=== PATIENT | female | born 1950 | race Caucasian/White ===

== ENCOUNTER 2025-05-29 15:22 | Outpatient (AMB) | payer MEDICARE, MEDICAID, SELFPAY ==
[2025-05-29 15:29] VITALS: BMI 21.9
--- NOTE | 2025-05-29 15:29 | A.PHYSOV ---
Vital Signs 05/29/25 15:29 Height 5 ft 2 in Weight 120 lb BMI 21.9 Intake Visit Reasons: EVAL FOR BACK INJECTION Intake Note: Patient is a 75 year old female here for re-evaluation of lower back pain. Consulting It Architect Required: No Allergies codeine (CODEINE) Allergy (Unknown, Verified 05/29/25 15:31) NAUSEA & VOMITING tramadol (TRAMADOL) Allergy (Unknown, Verified 05/29/25 15:31) SLEPT FOR 36 HOURS NARCOTICS Allergy (Unknown, Uncoded 04/04/20 16:01) MAKES PT DROWSY HPI Comments Details: Ms Schultz is a 75-year-old female seen in evaluation today for vertebral genic low back pain. Patient underwent L4-5, L5-S1 facet injection on 03/16/2025 patient reports 50% reduction of her pain for 2 months and then her pain returned despite performing physician directed home exercise plan. Patient is requesting repeat lumbar facet injections. She is also experiencing right shoulder pain. She has undergone subacromial injection of the shoulder in the past. Patient reports increasing pain with abduction. She is requesting right subacromial injection. Procedure: L5-S1 ANTTY 10/05/2024 no relief Bilateral L4-5, L5-S1 facet injection 50% reduction of her pain Right subacromial injection 05/29/2025 [facility] Surgical History H/O shoulder surgery (Unknown) H/O: knee surgery (Unknown) Stented coronary artery (Unknown) History of cholecystectomy (Unknown) Status post cardiac surgery (Unknown) Social History Alcohol intake: current Alcohol intake frequency: holidays/special occasions only Patient Tobacco Use Status: Never used Tobacco Use of substances other than those prescribed or required for medical reasons: No Review of Systems Narrative Vertebral dramatic low back pain, right shoulder pain, no incontinence, saddle anesthesia or urinary retention. Physical Exam Exam Exam: Right shoulder exam: She is tender to the lateral deltoid. Full range of motion in all planes. 5/ 5 rotator cuff strength throughout. Positive Neer test. Negative empty can test. Full range of motion of her elbow wrist and hand. Equal referral coordinator strength bilaterally. Lumbar Spine: Examination of her lumbar spine, no visible swelling or deformity. She has time to lower lumbar facets. She is otherwise nontender. All range of motion of lumbar spine with pain particularly with facet loading. Special Tests: Lhermittes sign was negative Heel Toe walk is normal Left straight leg raise: Negative Right straight leg raise: Negative Special tests Miguel test is negative Ganslen's test is negative SI Joint compression test negative Sharon test negative Piriformis stretch is negative Lower Extremities: Full range of motion bilateral lower extremities. The Neuro: Sensation: Intact to lower extremities bilaterally Strength L2 (Psoas): 5/5 on the left and 5/5 on the right. L3 (Quads): 5/5 on the left and 5/5 on the right. L4 (Ant tibialis): 5/5 on the left and 5/5 on the right. L5 (EHL) 5/5 on the left and 5/5 on the right. S1 (Gastroc): 5/5 on the left and 5/5 on the right. DTR L4: (Patellar) Left 1 Right 1 S1: (Achilles) Left 1 Right 1 Babinski Downgoing No pathologic clonus. No involuntary movement. Vital Signs: BMI result Body Mass Index 21.9 Office Procedures AMB Shoulder Injection AMB Shoulder Injection Procedure Details: Right Subacromial injection Procedure: The patient was educated about risks, complications and benefits including but not limited to increased serum glucose, infection, nerve damage, bleeding, tendon/ligament damage and pain. We agree with a subacromial injection is the next best step in the treatment plan. Verbal consent was obtained. Using aseptic technique, the skin was cleansed with Betadine. Ethyl chloride was used to desensitize the skin. Using a posterior approach, 40 mg of Kenalog and 3 mL 2% lidocaine were injected using a 25-gauge inch and a half needle into the subacromial space. The patient tolerated the procedure well without immediate complication. Postinjection instructions were given. Shoulder Injection - : Right All charges added?: Procedure code (CPT) selection complete Office Meds Kenalog 40 mg/mL suspension for injection Performing Provider: MARKUS Hull Performing Location: [facility] Administered by: MARKUS Hull on 05/29/25 16:12 Dose Route Admin Location Dispensed Lot Number Expiration Date [facility] [place] [employer] 40 mg intra-articular 1 mL [id number] [employer] Total Dispensed Waste 1 mL 0 % lidocaine (PF) 20 mg/mL (2 %) injection solution Performing Provider: MARKUS Hull Performing Location: [facility] Administered by: MARKUS Hull on 05/29/25 16:12 Dose Route Admin Location Dispensed Lot Number Expiration Date [employer] 60 mg intra-articular 3 mL [id number] Total Dispensed Waste 3 mL 0 % Assessment & Plan Assessment & Plan (1) Impingement of ankle joint: Code(s): M25.879 - Other specified joint disorders, unspecified ankle and foot Category: Medical (2) Vertebrogenic low back pain: Code(s): M54.51 - Vertebrogenic low back pain Category: Medical Plan Ms. Schultz is a 75-year-old female seen in evaluation today for vertebral genic low back pain. She responded very well bilateral L4-5, L5-S1 facet injection with greater than 50% reduction of her pain for 2-1/2 months. Patient's pain had returned despite performing her physician directed home exercise plan and using her medications as prescribed. At this point I recommend repeating the facet injection. We will obtain prior authorization for her injection contact her once we have done so. Patient is experiencing symptoms of impingement syndrome. She responded very well to subacromial injection in the past. Today she consented to repeat injection. She was given post-injection instructions, recommend: Likely compresses for 15 minutes up to 5 times daily. Continue rotator cuff strengthening. She should avoid repetitive overhead activities. Thank you for allowing me to participate in the care of your patient. Orders: Orders AMB Shoulder Injection Today M25.879 - Other specified joint disorders, unspecified ankle and foot Coding Level of Care Code Tele Est Pt Level 3 (40560) Diagnoses Impingement of ankle joint M25.879 Vertebrogenic low back pain M54.51 CPT Codes AMB Shoulder Injection - Hip/Bursa Injection - : Right ([id number])
--- OUTSIDE RECORDS SUMMARY | 2025-05-29 17:00 | XMS_ITS | Encounter Summary ---
Author Organization [facility] Address [address] [place] [id number] Phone Care Team Providers Care Passenger Service Supervisor Name Role Phone Monika Abraham MD Primary Care Provider [phone] Encounter Details Date Type Department Care Team (Late st Contact Info) Description 03/08/2022 Procedure Pass [facility], Ct Scan - [address] [address] Social History Tobacco Use Types Packs/Day Years Used Date Smoking Tobacco: Never Smokeless Tobacco: Never Alcohol Use Standard Drinks/Week Comments Never 0 (1 standard drink = 0.6 oz pur e alcohol) Comments No Sex and Gender Information Value Date Recorded Sex Assigned at Not on file Legal Sex Female 7:02 PM EST Gender Identity Not on file Sexual Orientation Not on file documented as of this encounter Functional Status * Calculated C-SSRS Risk Score (Lifetime/Recent) Answer Date of Assessment Author No Risk Indicated 03/08/2022 8:47 PM Oniel Wyman, GALINA * [place] Suicide Severity Rating Scale (Screener/Recent Self-Report) Question Answer Date of Assessment Author 1. Wish to be (Past 1 Month) No 022 8:47 PM Oniel Wyman, RN 2. Non-Specific Active Suici josé luis Thoughts (Past 1 Month) No 03/08/2022 8:47 PM DELFINOT Marv De La Paz, RN 6. Suicidal Behavior (Lifetime) No 8:47 PM Oniel Wyman, RN documented as of this encounter Plan of Treatment Not on file documented as of this encounter Visit Diagnoses Not on filedocumented in this encounter Additional Health Concerns Infection Onset Date Last Indicated Resolved Time COVID-19 05/15/2022 05/15/2022 06/05/2022 1:21 AM EST documented as of this encounter Care Teams Passenger Service Supervisor Relationship Specialty Start Date End Date Monika Abraham MD [address] [facility] [address] [place] [address] PCP - General 10/21/18 documented as of this encounter Additional Source Comments The information contained in this document represents components of the legal health record. It is not the complete legal health record.[facility]
--- OUTSIDE RECORDS SUMMARY | 2025-05-29 17:00 | XMS_ITS | Encounter Summary ---
Author Organization [facility] Address [address] [place] [phone] Phone Care Team Providers Care Outsole Cutter Machine Name Role Phone Monika Abraham MD Primary Care Provider [phone] Encounter Details Date Type Department Care Team (Late st Contact Info) Description 05/15/2022 Procedure Pass [facility], Ct Scan - [address] [address] Social History Tobacco Use Types Packs/Day Years [...] Score (Lifetime/Recent) Answer Date of Assessment Author Moderate Risk 05/15/2022 2:11 PM DELFINOT Cherie Austin RN * [place] Suicide Severity Rating Scale (Screener/Recent Self-Report) Question Answer Date of Assessment Author 1. Wish to be (Past 1 Month) Yes 022 2:11 PM DELFINOT Jeri Austin RN 2. Non-Specific Active Suici josé luis Thoughts (Past 1 Month) Yes 05/15/2022 2:11 PM DELFINOT Raya Austin RN 3. Active Suicidal Ideation with any Methods (Not Plan) Without Intent to Act (Past 1 Month) No 05/15/2022 2:11 PM EDT Jeri Austin R N 4. Active Suicidal Ideation with Some Intent to Act, Without Specific Plan (Past 1 Month) No 05/15/2022 2:11 PM EDT Jeri Austin R N 5. Active Suicidal Ideation with Specific Plan and Intent (Past 1 Month) No 05/15/2022 2:11 PM EDT Jeri Austin R N 6. Suicidal Behavior (Lifetime) Yes 2:11 PM EDT Jeri Austin, RN documented as of this encounter Plan of Treatment Not on file documented as of this encounter Visit Diagnoses Not on filedocumented in this encounter Additional Health Concerns Infection Onset Date Last Indicated Resolved Time COVID-19 05/15/2022 05/15/2022 06/05/2022 1:21 AM EST documented as of this encounter Care Teams Outsole Cutter Machine Relationship Specialty Start Date End Date Monika Abraham MD [address] [place] [phone] PCP - General 10/21/18 documented as of this encounter Additional Source Comments The information contained in this document represents components of the legal health record. It is not the complete legal health record.[facility]
--- OUTSIDE RECORDS SUMMARY | 2025-05-29 17:00 | XMS_ITS | Clinical Summary ---
Author Organization [facility] Address [address] [place] [id number] Phone Care Team Providers Care Cook Fast Food Name Role Phone Monika Abraham MD Primary Care Provider [phone] Allergies Active Allergy Reactions Criticality Noted Date Comments Latex Hives 09/19/2018 Other 10/20/2018 Most types of Antibiotics Sulfa (Sulfonamide Antibiotics) Hives 09/19/2018 Medications ibuprofen (ADVIL,MOTRIN) 200 MG tablet Take 200 mg by mouth every 6 (six) hours as needed for pain (specific location in comments). Active LORazepam (ATIVAN) 0.5 MG tablet Take 0.5 mg by mouth every 6 (six) hours as needed for anxiety. Active atorvastatin (LIPITOR) 80 MG tablet Take 80 mg by mouth daily. 2 Active ezetimibe (ZETIA) 10 mg tablet Take 10 mg by mouth daily. 2 Active ferrous sulfate 325 mg (65 mg eklutna iron) EC tablet Take 325 mg by mouth daily. 2 Active metoprolol succinate (TOPROL-XL) 25 MG 24 hr tablet Take 12.5 mg by mouth daily. 2 Active pantoprazole (PROTONIX) 40 MG tablet Take 40 mg by mouth 2 (two) times a day. 2 Active citalopram (CELEXA) 20 MG tablet Take 20 mg by mouth daily. 2 Active QUEtiapine (SEROQUEL) 100 MG tablet Take 100 mg by mouth nightly at bedtime. Active traZODone (DESYREL) 50 MG tablet Take 50 mg by mouth nightly at bedtime as needed. Active lamoTRIgine (LAMICTAL) 200 MG IMMEDIATE release tabletIndicatio ns:bipolar disorder in remission Take 400 mg by mouth nightly at bedtime. Last filled 02/03, unsure if still taking per pharmacist. Indications: bipolar disorder in remission Active Family History Medical History Relation Comments Heart attack Father No Known Problems Mother Relation Status Comments Father Mother Social History Tobacco Use Types Packs/Day Years Used Date Smoking Tobacco: Never Smokeless Tobacco: Never Alcohol Use Standard Drinks/Week Comments Never 0 (1 standard drink = 0.6 oz pur e alcohol) Education Answer Date Recorded Are you interested in more education? Not on pramod e 11/14/2022 Are you concerned about learning? Not on file 11/14/2022 No 11/14/2022 No 11/14/2022 Digital Access Answer Date Recorded No 12/14/2022 No 12/14/2022 Reliable internet access at home? Not on file 12/14/2022 Device with a working camera? Not on file Comments No Sex and Gender Information Value Date Recorded Sex Assigned at Not on file Legal Sex Female 7:02 PM EST Gender Identity Not on file Sexual Orientation Not on file Last Filed Vital Signs Vital Sign Reading Time Taken Comments Blood Pressure 133/62 05/17/2022 2:23 PM EDT Pulse 78 05/16/2022 7:52 PM EDT Temperature 36.8 C (98.2 F) 05/17/2022 2:23 PM EDT Respiratory Rate 18 05/17/2022 2:23 PM EDT Oxygen Saturation 100% 05/17/2022 2:23 PM EDT Inhaled Oxygen Concentration - - Weight 63.5 kg (140 lb) 03/08/2022 8:44 PM EDT Height 160 cm (5' 3 ) 03/08/2022 8:44 PM EDT Body Mass Index 24.8 03/08/2022 8:44 PM EDT Plan of Treatment Health Maintenance Due Date Last Done Comments Adult Td,Tdap Booster 1950 LIPID PANEL 1950 DEPRESSION SCREENING 1961 HEPATITIS C SCREENING 1967 ZOSTER VACCINES (1 of 2) 1999 OSTEOPOROSIS SCREENING INITI AL (ONE-TIME) 2014 PNEUMOCOCCAL VACCINES (50+ years) (2 of 2 - PCV) 02/12/2015 02/12/2014 PAP SMEAR 08/13/2022 08/13/2017 RSV VACCINE (1 - 1-dose 75+ series) 01/29/2024 INFLUENZA VACCINE (#1) 2025 0, 08/01/2019 COVID-19 VACCINE (4 - 2024-2 6 season) 2025 06/11/2021, 10/23/2020, 09/29/2020 SMOKING STATUS SCREENING (On ce After 26 Yrs) Completed 10/20/2018 HEPATITIS A VACCINES Aged Out No long er eligible based on patient's age to complete this topic HIB VACCINES Aged Out No longer eligi ble based on patient's age to complete this topic IPV VACCINES Aged Out No longer eligi ble based on patient's age to complete this topic MENINGOCOCCAL VACCINES (ACWY) Aged Out No longer eligible based on patient's age to complete this topic MENINGOCOCCAL VACCINES (B) Aged Out N o longer eligible based on patient's age to complete this topic Medical Devices Not on file Procedures Procedure Name Priority Date/Time Associated Diagnosis Comments PAP SMEAR FOR RESULT ENTRY ONLY Routine 08/13/2017 from Last 3 Months or Most Recently Relevant to Health Maintenance Results * PAP SMEAR FOR RESULT ENTRY ONLY (08/13/2017) Pap smear NIL HPV Negative (-16/18) Historical Provider HEALTH MAINTENANCE Final Result from Last 3 Months or Most Recently Relevant to Health Maintenance Insurance MEDICARE PART A & B MEDICARE PART A & B [facility] MEDICARE PART A & B MEDICARE PART A & B [facility] MEDICARE PART A & [facility] B MED[facility]ARE PART A & B [facility] MEDICARE PART A & B [facility] MEDICARE PART A & B [facility] Advance Directives For more information, please contact: [phone] (9AM - 5PM [facility], Wednesday-Wednesday) Documents on File Type Date Recorded Patient Informatics Coordinator Expl anation Healthcare Proxy 12/17/2023 4:57 PM Care Teams Cook Fast Food Relationship Specialty Start Date End Date Monika Abraham MD [address] [phone] PCP - General 10/21/18 Additional Source Comments The information contained in this document represents components of the legal health record. It is not the complete legal health record.[facility]
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
--- OUTSIDE RECORDS SUMMARY | 2025-05-29 17:01 | XMS_ITS | Encounter Summary ---
Author Organization [facility] Address [address] [place] [address] Care Team Providers Care Hospice Office Coordinator Name Role Phone Monika Abraham MD Primary Care Provider [phone] Reason for Visit * Reason Onset Date Comments appointment scheduling 05/25/2025 Encounter Details Date Type Department Care Team (Late st Contact Info) Description 05/25/2025 Telephone [facility] - [facility] [address] [facility] [address] [place] [address] Orlin Olvera MD [address] [place] [address] [place] [address] Social History Tobacco Use Types Packs/Day Years Used Date Smoking Tobacco: Never Smokeless Tobacco: Never Alcohol Use Standard Drinks/Week Comments No 0 (1 standard drink = 0.6 oz pur e alcohol) Comments Unknown Sex and Gender Information Value Date Recorded Sex Assigned at Female 11/22/2024 2:44 PM EDT Legal Sex Female 11:38 AM EST Gender Identity Female 11/22/2024 2:44 PM EDT Sexual Orientation Straight 01/17/2025 9: 51 AM EDT documented as of this encounter Progress Notes * Juliana Bourgeois - 05/28/2025 2:52 PM EST Patients daughter Lori called back. Appointment scheduled with Dr Olvera on 2024 at 11:20 AM. Appointment reminder mailed. * Jennifer Woods - 05/25/2025 10:56 AM EST Left message for patient to schedule followup from recall for Dr. Olvera or [place]. documented in this encounter Plan of Treatment Upcoming Encounters Date Type Department Care Team (Late st Contact Info) Description 06/15/2025 2:00 PM EST Office Visit Internal Medicine - [place] [address] [place] [address] Monika Abraham MD [address] [place] [phone] 07/05/2025 11:20 AM EST Office Visit [facility] - [facility] [address] [facility] [address] [place] [phone] Orlin Olvera MD [address] [place] [address] [address] [place] [address] documented as of this encounter Visit Diagnoses Not on filedocumented in this encounter Additional Health Concerns Assessment Noted Time PHQ-9 Depression Total Score: 14 024 7:50 PM EST A fall risk assessment has been complete d for the patient 05/26/2024 7:47 PM EST documented as of this encounter Care Teams Hospice Office Coordinator Relationship Specialty Start Date End Date Monika Abraham MD [address] [place] [address] PCP - General Internal Medicine 07/19/12 documented as of this encounter
--- OUTSIDE RECORDS SUMMARY | 2025-05-29 17:01 | XMS_ITS | Clinical Summary ---
Author Organization [facility] Address [address] [place] [address] Phone Care Team Providers Care Sustainable Design Coordinator Name Role Phone Monika Abraham MD Primary Care Provider [phone] Allergies Active Allergy Reactions Criticality Noted Date Comments Bacitracin 06/04/2021 Codeine 10/09/2008 Lactose 09/24/2017 Lactulose 12/03/2021 pt has hx of poor rectal tone and hx of ciff has caused severe diarrhea in past. Latex 09/24/2017 Morphine 01/11/2012 Neomycin 06/04/2021 Neomycin-Polymyxin B Gu 04/03/2013 Penicillins 12/03/2021 Polymyxin B 06/04/2021 Sulfa (Sulfonamide Antibiotics) 09/24/2017 Tramadol 12/03/2021 Other reaction(s): Lethargy pt slept 26hr after taking tramadol in the past, too sedated Medications acetaminophen (TYLENOL) 325 mg tablet Take 2 Tablets by mouth every 6 hours as needed for Pain (mild to moderate pain) for up to 10 days. 08/19/19 24 Active aspirin 81 mg chewable tablet aspirin 81 mg chewable tablet CHEW AND SWALLOW 1 TABLET BY MOUTH DAILY 04/03/20 21 Active CALCIUM CARBONATE ORAL Take 1 Tablet by mouth 2 times daily. 08/26/19 23 Active citalopram (CeleXA) 20 mg tablet citalopram 20 mg tablet TAKE 1 TABLET BY MOUTH EVERY DAY 10/19/20 22 Active diclofenac (VOLTAREN) 1 % topical gel Apply 1 g topically daily. 10/08/19 Active gabapentin (NEURONTIN) 100 mg capsule TAKE 1 CAPSULE BY MOUTH UP TO THREE TIMES DAILY NEEDED FOR PAIN 12/14/19 Active ibuprofen (ADVIL,MOTRIN) 800 mg tablet Take 1 Tablet by mouth every 8 hours for 20 days. 10/08/19 Active lamoTRIgine (LaMICtal) 200 mg tablet lamotrigine 200 mg tablet TAKE 2 TABLETS BY MOUTH EVERY DAY Active meloxicam (MOBIC) 15 mg tablet Take 1 Tablet by mouth daily for 60 days. 09/23/19 Active traZODone (DESYREL) 50 mg tablet Take 10 tablets (500 mg total) by mouth at bedtime. Active quetiapine fumarate (QUETIAPINE ORAL) Take by mouth. Activ e clopidogreL (PLAVIX) 75 mg tablet Take 1 tablet (75 mg total) by mouth 1 (one) time each day. Active cyclobenzaprin e (FLEXERIL) 5 mg tablet TAKE 1 TABLET BY MOUTH AT BEDTIME FOR UP TO 10 DAYS NEEDED FOR MUSCLE SPASMS Active ezetimibe (ZETIA) 10 mg tablet 05/06/20 Active ferrous sulfate 325 mg (65 mg iron) EC tablet 05/11/20 Active loratadine (CLARITIN) 10 mg tablet TK 1 T PO D Active LORazepam (ATIVAN) 1 mg tablet Take 1 tablet (1 mg total) by mouth 2 (two) times a day if needed. for anxiety 09/16/19 Active pantoprazole (PROTONIX) 40 mg EC tablet 05/11/20 Active prazosin (MINIPRESS) 5 mg capsule Active polyethylene glycol (Golytely) 236-22.74-6.74 -5.86 gram solution Take 4L by mouth once for one dose. May substitue any PEG. Starting at 6PM the night before your procedure drink 1 8oz glasses at your own pace until you complete half of the gallon. Finish 2nd half of the gallon 5 hours before your procedure. 4000 mL 11/16/19 Active bisacodyL (DULCOLAX) 5 mg EC tablet Take 2 tablets by mouth right before beginning bowel prep. See instructions provided by the office 2 tablet 11/16/19 25 Active hydrocortisone 2.5 % cream Apply topically 2 (two) times a day if needed for irritation or rash. 30 g 5 11/18/19 25 026 Active atorvastatin (LIPITOR) 80 mg tablet TAKE 1 TABLET(80 MG) BY MOUTH 1 TIME EACH DAY 90 tablet 1 02/13/20 25 Active calcium carbonate-stacey min D3 600 mg-10 mcg (400 unit) capsule Take 1 capsule by mouth 2 (two) times a day. 180 each 2 03/16/20 25 Active metoprolol succinate (TOPROL-XL) 25 mg 24 hr tablet TAKE 1/2 TABLET BY MOUTH DAILY 45 tablet 05/18/20 25 Active metoprolol tartrate (LOPRESSOR) 25 mg tablet 0.5 tablets (12.5 mg total). 08/20/19 24 025 Discontinued metoprolol succinate (TOPROL-XL) 25 mg 24 hr tablet TAKE 1/2 TABLET BY MOUTH DAILY 45 tablet 02/13/20 25 025 Discontinued Active Problems Problem Noted Date Diagnosed Date CAD (coronary artery disease) of artery bypass g raft 08/16/2023 Overview (04/26/2024): Last Assessment & Plan: No angina symptoms. Lipid profile is excellent. Will discontinue zetia. No recurrent GI bleed and will resume low-dose aspirin. The sternal wire is sticking out and I called surgeon's office. She will be contacted by cardiac surgeons office for an urgent appointment. 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 V24) 10/01/2020 Overview (04/26/2024): Multiple negative prior stress test cardiac catheterization which demonstrated severe three-vessel disease. Eventually, she had a CABG x 3 in January 2019 with NASH to LAD, SVG to OM and SVG to PDA. echocardiogram in July 2020 revealing LVEF 55 to 60%, mild LVH, no wall motion abnormalities, with no hemodynamically significant valve disease, and normal PASP Last Assessment & Plan: She had no angina symptoms. Lipid is not at target was added Zetia. She has been on Plavix CABG 2 years ago with a short interruption. We can switch Plavix to aspirin. I suggest her to take PPI for GI protection. Also suggest to avoid Ibuprofen. Hyperlipidemia 12/16/2017 Overview (04/26/2024): Last Assessment & Plan: Well-controlled. Thyroid nodule 12/16/2017 Essential hypertension 08/19/2017 Overview (04/26/2024): Last Assessment & Plan: Blood pressure well controlled today. Continue current treatment plan Anemia 06/03/2017 Known medical problems 12/09/2016 Opioid dependence ([facility] V24, [facility] V28) Spinal stenosis 12/09/2016 Herpes simplex type 1 infection 09/15/2016 Chronic lower back pain 09/04/2016 Major depression 09/04/2016 Allergic rhinitis 06/13/2014 Vitamin D deficiency 05/14/2014 Osteopenia 11/18/2013 Obstructive sleep apnea 10/07/2013 Dissociative identity disorder ([facility] V24, [facility] V28) 10/03/2013 Fibromyalgia 06/02/2013 Encounters Date Type Department Care Team Description 05/25/2025 Telephone [facility] [address] [facility] [address] [place] [address] Orlin Olvera MD 04/09/2025 Telephone [facility] [address] [facility] [address] [place] [address] Orlin Olvera MD 04/05/2025 8:32 AM EDT - 04/05/2025 11:59 PM EDT Hospital Encounter [facility] [address] [place] [address] Spondylosis without myelopathy or radiculopathy, lumbar region Discharge Disposition: Home or Self Care 03/16/2025 8:34 AM EDT - 03/16/2025 11:59 PM EDT [facility] [address] [place] [phone] Encounter for observation for other suspected diseases and conditions ruled out; Encounter for screening mammogram for malignant neoplasm of breast Discharge Disposition: Home or Self Care 03/16/2025 7:58 AM EDT - 03/16/2025 11:59 PM EDT Hospital Encounter [facility] Density [address] [place] [address] Osteopenia, unspecified location; Localized osteoporosis ([place]) Discharge Disposition: Home or Self Care from Last 3 Months Immunizations Immunization Administration Dates Next Due Influenza Quadravalent, MDCK , 0.5ml, preservative free (Flucelvax) 6mo and older 08/01/2019 Pneumococcal conjugate 13 va lent (Prevnar 13, PCV13) 2mo and older 06/03/2017 Pneumococcal polysaccharide 23 valent (Pneumovax 23) 2yo and older 05/01/2015 Td Tetanus diptheria (Tdvax) 7yo and older 02/15 Zoster Live 01/18/2012 Surgical History Surgery Date Site/Laterality Comments KNEE SURGERY PROCEDURE: HISTORICAL KNEE SURGERY; COMMENT: arthroplasty CHOLECYSTECTOMY PROCEDURE: HISTORICAL CHOLECYSTECTOMY LUMBAR LAMINECTOMY PROCEDURE: HISTORICAL LUMB LAMINECTOMY SHOULDER SURGERY PROCEDURE: HISTORICAL SHOULDER SURGERY Medical History Medical History Date Comments Hypertension DX:Hypertension Heart disease DX:Heart disease Anxiety DX:Anxiety Stroke ([facility] V24, [facility] V28) DX:Stroke ([facility]) History of anorexia nervosa 08/01/2018 DX:H istory of anorexia nervosa; COMMENT: Hospitalized ICU 2006, septic shock, resp failure, prolonged hospital stay. Hx of chronic laxative use and over exercise. Major depression 09/04/2016 DX:Major depres dawn Allergic rhinitis 06/13/2014 DX:Allergic rh initis Anemia 06/03/2017 DX:Anemia Chronic lower back pain 09/04/2016 DX:Chron ic lower back pain Dissociative identity disord er ([facility] V24, [facility] V28) 10/03/2013 DX:Dissociative identity di sorder ([facility]) Hyperlipidemia 12/16/2017 DX:Hyperlipidemi a Fibromyalgia 06/02/2013 DX:Fibromyalgia Herpes simplex type 1 infection 09/15/2016 DX:Herpes simplex type 1 infection Hypertension 08/19/2017 DX:Hypertension Osteopenia 11/18/2013 DX:Osteopenia Opioid dependence ([facility] V 24, [facility] V28) 12/09/2016 DX:Opioid dependence ([facility]) Obstructive sleep apnea 10/07/2013 DX:Obstr uctive sleep apnea Vitamin D deficiency 05/14/2014 DX:Vitamin D deficiency Spinal stenosis 12/09/2016 DX:Spinal stenos is Thyroid nodule 12/16/2017 DX:Thyroid nodul e Herniated disc 12/09/2016 DX:Herniated dis c Neck pain 12/16/2017 DX:Neck pain History of fall 08/21/2014 DX:History of fa ll History of acute renal failure 08/01/2018 D X:History of acute renal failure; COMMENT: During 2006 hospitalization. Family History Medical History Relation Name Comments Heart disease Father Arthritis Mother Heart disease Mother Hypertension Mother Stroke Mother Relation Name Status Comments Father Mother Social History Tobacco [...] Orientation Straight 01/17/2025 9: 51 AM EDT Obstetrics History Last Filed Vital Signs Vital Sign Reading Time Taken Comments Blood Pressure 120/68 02/20/2025 2:26 PM EDT Pulse 67 02/20/2025 2:26 PM EDT Temperature 36.8 C (98.3 F) 02/20/2025 2:26 PM EDT Respiratory Rate - - Oxygen Saturation 98% 02/20/2025 2:26 PM EDT Inhaled Oxygen Concentration - - Weight 52.6 kg (116 lb) 02/20/2025 2:26 PM EDT Height 157.5 cm (5' 2 ) 02/20/2025 2:26 PM EDT Body Mass Index 21.22 02/20/2025 2:26 PM EDT Plan of Treatment Upcoming Encounters Date Type Department Care Team (Late st Contact Info) Description 06/15/2025 2:00 PM EST Office Visit Internal Medicine - [place] [address] [facility] [address] [place] [phone] Monika Abraham MD [address] [place] [address] 07/05/2025 11:20 AM EST Office Visit [facility] [address] [facility] [address] [place] [address] Orlin Olvera MD [address] [place] [address] [place] [address] Health Maintenance Due Date Last Done Comments Hepatitis A Vaccines (1 of 2 - Risk 2-dose series) 01[birth year]29/1969 Zoster Vaccines (2 of 3) 03/14/2012 01/18/2012 Hepatitis C Screening 06/27/2022 Social Influencers of Health Screening 06/27/2022 RSV Immunization Adult Patients (1 - 1-dose 75+ series) 01/29/2024 Depression Screening 07/19/2024 05/26/2024 COVID-19 Vaccine ( season) 2025 07/21/2022, 06/11/2021, 10/23/2020, Additional history exists Influenza Vaccine (#1) 2025 04/26/2020, 2019 Falls Risk Assessment 05/24/2025 05/24/2024, 024 Medicare Annual Wellness Visit 05/24/2025 05/24/2024 Hypertension/CHF/CAD Annual BMP Blood Test 11/17/2025 11/17/2024, 06/26/2022 Cholesterol Screening (Lipid Panel) 11/17/2029 11/17/2024, 11/26/2022 DTaP,Tdap,and Td Vaccines (3 - Td or Tdap) 11/01/2032 11/01/2022, 02/15/2011 Osteoporosis Screening (Bone Density Screening) 03/16/2035 03/16/2025, 08/25/2022 Pneumococcal Vaccine: 50+ Years Completed 06/03/2017, 05/01/2015, 02/12/2014 Breast Cancer Screening Discontinued 03/16/2025 HIB Vaccines Aged Out No longer eligi ble based on patient's age to complete this topic HPV Vaccines Aged Out No longer eligi ble based on patient's age to complete this topic Hepatitis B Vaccines Aged Out No long er eligible based on patient's age to complete this topic IPV Vaccines Aged Out No longer eligi ble based on patient's age to complete this topic MMR Vaccines Aged Out No longer eligi ble based on patient's age to complete this topic Meningococcal ACWY Vaccine Aged Out N o longer eligible based on patient's age to complete this topic Meningococcal B Vaccine Aged Out No l onger eligible based on patient's age to complete this topic RSV Immunization Patients Under 20 months Aged Out No longer eligible based on patient's age to complete this topic Varicella Vaccines Aged Out No longer eligible based on patient's age to complete this topic Procedures Procedure Name Priority Date/Time Associated Diagnosis Comments XR PELVIS 1-2 VIEWS Routine 04/05/2025 8 :38 AM EDT Spondylosis without myelopathy or radiculopathy, lumbar region MG MAMMO DIGITAL SCREENING W KARL BILAT Routine 03/16/2025 9:24 AM EDT Encounter for observation for other suspected diseases and conditions ruled out Encounter for screening mammogram for malignant neoplasm of breast BD BONE DENSITY DXA AXIAL SKELETON Routine 03/16/2025 9:12 AM EDT Osteopenia, unspecified location Localized osteoporosis ([place]) COMPREHENSIVE METABOLIC PANEL Routine 11/17/2024 11:51 AM EDT Mixed hyperlipidemia Thyroid nodule Coronary artery disease involving coronary bypass graft of [place] heart without angina pectoris Essential hypertension General medical exam LIPID PANEL WITH REFLEX TO DIRECT LDL Routine 11/17/2024 11:51 AM EDT Mixed hyperlipidemia Thyroid nodule Coronary artery disease involving coronary bypass graft of [place] heart without angina pectoris Essential hypertension General medical exam from Last 3 Months or Most Recently Relevant to Health Maintenance Results * XR Pelvis 1-2 Views (04/05/2025 8:38 AM EDT) Anatomical Region Laterality Modality Body, Pelvis Radiographic Sumaya ging 04/05/2025 8:43 AM EDT Impressions 04/05/2025 8:50 AM EDT Multifocal degenerative changes. -------- FINAL REPORT -------- Dictated By: Bibiana Ramos Dictated Date: 04/05/2025 08:43 ET Assigned Physician: Bibiana Ramos Reviewed and Electronically Signed By: Bibiana Ramos Signed Date: 04/05/2025 08:50 ET Workstation ID: [id number] Transcribed By: Self Edit Transcribed Date: 04/05/2025 08:43 ET Narrative 04/05/2025 8:50 AM EDT EXAM: Pelvic x-ray. HISTORY: Pain. Spondylosis lumbar region. COMPARISON: None VIEWS: AP view of the pelvis performed. FINDINGS: No evidence of an acute fracture or dislocation. Pelvic ring is intact. No destructive bone lesion. Mild degenerative changes involving the right hip with joint space narrowing and acetabular spurring. Degenerative changes across the symphysis pubis. Degenerative changes also present in the imaged lumbar spine. Faint soft tissue calcifications superior to the left greater trochanter as seen with calcific trochanteric bursitis/tendinopathy. Procedure Note Bibiana Raoms MD - 04/05/2025 EXAM: Pelvic x-ray. HISTORY: Pain. Spondylosis lumbar region. COMPARISON: None VIEWS: AP view of the pelvis performed. FINDINGS: No evidence of an acute fracture or dislocation. Pelvic ring is intact.No destructive bone lesion. Mild degenerative changes involving the righthip with joint space narrowing and acetabular spurring. Degenerativechanges across the symphysis pubis. Degenerative changes also present inthe imaged lumbar spine. Faint soft tissue calcifications superior to theleft greater trochanter as seen with calcific trochantericbursitis/tendinopathy. IMPRESSION: Multifocal degenerative changes. -------- FINAL REPORT -------- Dictated By: Bibiana Ramos Dictated Date: 04/05/2025 08:43 ET Assigned Physician: Bibiana Ramos Reviewed and Electronically Signed By: Bibiana Ramos Signed Date: 04/05/2025 08:50 ET Workstation ID: [id number] Transcribed By: Self Edit Transcribed Date: 04/05/2025 08:43 ET us Dragan APARICIO IMG XR PROCEDURES Final Result * MG Mammo Digital Screening w Karl bilat (03/16/2025 9:24 AM EDT) Anatomical Region Laterality Modality Breast Bilateral Mammography 03/16/2025 9:07 AM EDT Impressions 03/16/2025 9:11 AM EDT No mammographic evidence of malignancy. A negative mammogram in the presence of a clinically suspicious palpable abnormality does not preclude the possibility of malignancy or alter the indications for biopsy. PQRI CPT II 3342F Code 20103, 06379 PQRI 225 CPT II 7025F TISSUE DENSITY: The breasts are almost entirely fatty. (BI-RADS Category A) IMPRESSION: Benign. BI-RADS CATEGORY: 2 - BENIGN RECOMMENDATION: Screening bilateral mammogram is recommended in 1 year. Mammo Location: [facility], [address] [place] [id number] -------- FINAL REPORT -------- Dictated By: Melquiades Mckenna Dictated Date: 03/16/2025 09:07 ET Assigned Physician: Melquiades Mckenna Reviewed and Electronically Signed By: Melquiades Mckenna Signed Date: 03/16/2025 09:11 ET Workstation ID: [id number] Transcribed By: Self Edit Transcribed Date: 03/16/2025 09:07 ET Narrative 03/16/2025 9:11 AM EDT CLINICAL: The patient is a 75 years Female presenting for routine screening mammography. 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 Excisional biopsy was recommended that time but it is uncertain whether or not this was performed. COMPARISON: Most recently 08/18/2012 and most remotely 06/05/2009. TECHNIQUE: Full-field digital mammography of the breasts bilaterally consisting of tomosynthesis in MLO and CC projection is performed in the [employer]omptonographe 2000-D unit. Computer aided detection utilizing the iCAD system was utilized. FINDINGS: The breasts are seen to be largely fatty replaced. Bilateral benign punctate, rim, and vascular calcifications are noted. There is no suspicious cluster of microcalcifications, mass, or area of architectural distortion. There is no skin thickening or nipple retraction. Procedure Note Melquiades Mckenna MD - 03/16/2025 CLINICAL: The patient is a 75 years Female presenting for routinescreening mammography. The patient underwent ultrasound-guided biopsy ofthe right breast on 08/31/2022, yielding atypical ductal hyperplasia andintraductal papilloma. Excisional biopsy was recommended that time but itis uncertain whether or not this was performed. COMPARISON: Most recently 08/18/2012 and most remotely 06/05/2009. TECHNIQUE: Full-field digital mammography of the breasts bilaterallyconsisting of tomosynthesis in MLO and CC projection is performed in theShomptonographe 2000-D unit. Computer aided detection utilizing the Admaticystem was utilized. FINDINGS: The breasts are seen to be largely fatty replaced. Bilateralbenign punctate, rim, and vascular calcifications are noted. There is nosuspicious cluster of microcalcifications, mass, or area of architecturaldistortion. There is no skin thickening or nipple retraction. IMPRESSION: No mammographic evidence of malignancy. A negative mammogram in the presence of a clinically suspicious palpableabnormality does not preclude the possibility of malignancy or alter theindications for biopsy. PQRI CPT II 3342F Code 75587, 57227 PQRI 225 CPT II 7025F TISSUE DENSITY: The breasts are almost entirely fatty. (BI-RADS CategoryA) IMPRESSION: Benign. BI-RADS CATEGORY: 2 - BENIGN RECOMMENDATION: Screening bilateral mammogram is recommended in 1 year. Mammo Location: [facility], [address] [place] [address] -------- FINAL REPORT -------- Dictated By: Melquiades Mckenna Dictated Date: 03/16/2025 09:07 ET Assigned Physician: Melquiades Mckenna Reviewed and Electronically Signed By: Melquiades Mckenna Signed Date: 03/16/2025 09:11 ET Workstation ID: [id number] Transcribed By: Self Edit Transcribed Date: 03/16/2025 09:07 ET Monika Abraham MD IMG BI PROCEDURES Final Result * BD Bone Density DXA Axial Skeleton (03/16/2025 9:12 AM EDT) Anatomical Region Laterality Modality Wrist, Hip, L-spine Bone Densito metry 03/16/2025 9:16 AM EDT Impressions 03/16/2025 9:17 AM EDT 1. Osteopenia. 2. FRAX analysis yields a 10-year probability of major osteoporotic fracture of 12.9% and a 10-year probability of hip fracture of 3.6%. Code 30304 -------- FINAL REPORT -------- Dictated By: Melquiades Mckenna Dictated Date: 03/16/2025 09:16 ET Assigned Physician: Melquiades Mckenna Reviewed and Electronically Signed By: Melquiades Mckenna Signed Date: 03/16/2025 09:17 ET Workstation ID: [id number] Transcribed By: Self Edit Transcribed Date: 03/16/2025 09:16 ET Narrative 03/16/2025 9:17 AM EDT HISTORY: The patient is a 75-year-old postmenopausal female with clinical concern for metabolic bone disease. FINDINGS: Dual energy x-ray absorptiometry of the lumbar spine and femurs is performed. The mean bone mineral density at L1-L4 (with the exclusion of L3) is 1.241 gm/cm2 which is 106% of that of young normals and 136% of that of age matched controls. This yields a T-score of 0.6 and a Z-score of 2.8 and there is therefore no evidence of osteoporosis or osteopenia here. The mean bone mineral density of the femurs bilaterally is 0.807 gm/cm2 which is 80% of that of young normals and 108% of that of age matched controls. This yields a T-score of -1.6 and a Z-score of 0.5 which is diagnostic of osteopenia. The T-score of the right femoral neck is -2.0 and that of the left femoral neck is -1.5 which is diagnostic of osteopenia. Procedure Note Melquiades Mckenna MD - 03/16/2025 HISTORY: The patient is a 75-year-old postmenopausal female with clinicalconcern for metabolic bone disease. FINDINGS: Dual energy x-ray absorptiometry of the lumbar spine and femursis performed. The mean bone mineral density at L1-L4 (with the exclusionof L3) is 1.241 gm/cm2 which is 106% of that of young normals and 136% ofthat of age matched controls. This yields a T-score of 0.6 and a Z-scoreof 2.8 and there is therefore no evidence of osteoporosis or osteopeniahere. The mean bone mineral density of the femurs bilaterally is 0.807 gm/qj7eswan is 80% of that of young normals and 108% of that of age matchedcontrols. This yields a T-score of -1.6 and a Z-score of 0.5 which isdiagnostic of osteopenia. The T- score of the right femoral neck is -2.0and that of the left femoral neck is -1.5 which is diagnostic ofosteopenia. IMPRESSION: 1. Osteopenia. 2. FRAX analysis yields a 10-year probability of major osteoporoticfracture of 12.9% and a 10-year probability of hip fracture of 3.6%. Code 45594 -------- FINAL REPORT -------- Dictated By: Melquiades Mckenna Dictated Date: 03/16/2025 09:16 ET Assigned Physician: Melquiades Mckenna Reviewed and Electronically Signed By: Melquiades Mckenna Signed Date: 03/16/2025 09:17 ET Workstation ID: [id number] Transcribed By: Self Edit Transcribed Date: 03/16/2025 09:16 ET Monika Abraham MD IM DXA PROCEDURES Final Resul t * Lipid panel with reflex to direct LDL (11/17/2024 11:51 AM EDT) Cholesterol 156 0 - 200 mg/dL LAB CHEMISTRY METHOD 11/17/2024 4:16 PM EDT [facility] Triglycerides 90 0 - 150 mg/dL LAB CHEMISTRY METHOD 11/17/2024 4:16 PM EDT [facility] HDL 65 >=40 mg/dL LAB CHEMISTRY METHOD 11/17/2024 4:16 PM [facility] LDL Calculated 73 0 - 100 mg/dL LAB CHEMISTRY METHOD 11/17/2024 4:16 PM EDT [facility] VLDL Cholesterol Kirt 18 mg/dL LAB CHEMISTRY METHOD 11/17/2024 4:16 PM EDT [facility] Non HDL Chol. (LDL+VLDL) 91 <145 mg/dL LAB CHEMISTRY METHOD 11/17/2024 4:16 PM EDT [facility] Chol/HDL Ratio 2.4 0.0 - 4.4 LAB CHEMISTRY METHOD 11/17/2024 4:16 PM [facility] Blood Venous blood specimen / Unknown Venipuncture / Unknown 11/17/2024 11:51 AM EDT 11/17/2024 1:23 PM EDT us Monika Abraham MD LAB BLOOD ORDERABLES Final Res ult [facility] [address] [place] [address], [place] [phone] * (ABNORMAL) Comprehensive metabolic panel (11/17/2024 11:51 AM EDT) Sodium 143 133 - 145 mmol/L LAB CHEMISTRY METHOD 11/17/2024 4:16 PM [facility] Potassium 4.5 3.5 - 5.5 mmol/L LAB CHEMISTRY METHOD 11/17/2024 4:16 PM [facility] Chloride 112(H) 96 - 110 mmol/L LAB CHEMISTRY METHOD 11/17/2024 4:16 PM [facility] CO2 26 21 - 32 mmol/L LAB CHEMISTRY METHOD 11/17/2024 4:16 PM [facility] Anion Gap 5 3 - 11 LAB CHEMISTRY METHOD 11/17/2024 4:16 PM [facility] Glucose 87 70 - 100 mg/dL LAB CHEMISTRY METHOD 11/17/2024 4:16 PM [facility] BUN 15 5 - 25 mg/dL LAB CHEMISTRY METHOD 11/17/2024 4:16 PM [facility] Creatinine 0.73 0.50 - 1.10 mg/dL LAB CHEMISTRY METHOD 11/17/2024 4:16 PM [facility] eGFR 86 >=60 mL/min/1. 73m2 LAB CHEMISTRY METHOD 11/17/2024 4:16 PM [facility] Comment:Calculation based on the Chronic Kidney Disease Epidemiology Collaboration (CKD-EPI) equation refit without adjustment for race. BUN/Creatinine Ratio 20.5 LAB CHEMISTRY METHOD 11/17/2024 4:16 PM T [facility] Calcium 9.0 8.5 - 10.5 mg/dL LAB CHEMISTRY METHOD 11/17/2024 4:16 PM [facility] AST (SGOT) 35 10 - 42 unit/L LAB CHEMISTRY METHOD 11/17/2024 4:16 PM [facility] ALT (SGPT) 29 10 - 60 unit/L LAB CHEMISTRY METHOD 11/17/2024 4:16 PM [facility] Alkaline Phosphatase 97 42 - 121 unit/L LAB CHEMISTRY METHOD 11/17/2024 4:16 PM [facility] Total Protein 6.9 6.0 - 8.0 g/dL LAB CHEMISTRY METHOD 11/17/2024 4:16 PM [facility] Albumin 3.8 3.2 - 5.0 g/dL LAB CHEMISTRY METHOD 11/17/2024 4:16 PM [facility] Total Bilirubin 0.5 0.0 - 1.4 mg/dL LAB CHEMISTRY METHOD 11/17/2024 4:16 PM [facility] Blood Venous blood specimen / Unknown Venipuncture / Unknown 11/17/2024 11:51 AM EDT 11/17/2024 1:23 PM EDT us Monika Abraham MD LAB BLOOD ORDERABLES Final Res ult [facility] [address] [place] [address], from Last 3 Months or Most Recently Relevant to Health Maintenance Insurance MEDICARE MEDICAID - [place] Care Teams Sustainable Design Coordinator Relationship Specialty Start Date End Date Monika Abraham MD [address] [place] [address] [phone] PCP - General Internal Medicine 07/19/12
--- OUTSIDE RECORDS SUMMARY | 2025-05-29 17:01 | XMS_ITS | Data Portability ---
Author Organization MD - [facility], [place] [facility] Address [address] [facility] [place] [address] Care Team Providers Care Sales Operations Associate Name Role Phone FABIOLA CHINO Primary Care Provider Assessment Encounter Date Assessment Date Assessment LastModified by Organization Details LastModified Time 12/30/2016 12/30/2016 Ms. Schultz is doing well. She will begin to wean from the OxyContin. She would benefit from physical therapy at a house. She was given a prescription for this. She will followup in 3 months to assess her progress. Not available 12/30/2016 14:07:12 10/06/2017 10/06/2017 Impression: Acute cervical pain with a myofascial component without evidence of cervical radiculopathy. Cervical facet arthropathy. Plan: Due to the severity of the symptoms and the fact the patient lives far away we arranged for cervical facet injections today to see if we could reduce her pain. I've written her prescription for physical therapy to include modalities deep tissue massage stretching traction eventually some strengthening. I've written her prescription for muscle relaxer compound cream to be applied to 3 times per day and cervical musculature. Follow up with me in 2-4 weeks to reevaluate. Patient had a lot of questions was very worried about her symptoms we went through the nature of the problem in detail. Over 50% of today's 45 minute visit was used for patient counseling. [email or web address] Not available 10/06/2017 16:52:11 04/10/2021 04/10/2021 I personally reviewed her lumbar spine MRI on [facility]. It demonstrates an L4-5 spondylolisthesi s. There is a laminectomy at this level. She has some moderate stenosis at L3-4. She has significant facet arthropathy at L5-S1. Ms. Schultz's left buttock and leg pain are most consistent with a left S1 radiculopathy due to lateral recess narrowing at L5-S1. Fortunately there is no associated weakness. We discussed treatment options including an epidural steroid injection as she has failed to improve with physical therapy. She wishes to have this done. This will be ordered for her. She will contact us should this not help her. [email or web address] Not available 04/10/2021 11:35:13 Plan of Treatment Reminders Order Date Submit Date Provider Last Modified By Organization Details Last Modified Time Details Appointments None recorded. Lab None recorded. Referral physical therapy back referral 2017 018 [email or web address] Not available 8 11:58:00 physical therapist referral 2016 017 [email or web address] Not available 7 15:34:03 Procedures epidural steroid injection, lumbar (PROC) - L5-S1 2020 021 [email or web address] Not available 1 11:39:08 facet joint injection, cervical (PROC) 2017 018 [email or web address] Not available 8 11:25:25 Surgeries None recorded. Imaging XR, cervical spine 2017 018 [email or web address] Not available 8 07:40:58 Medication Orders None recorded. Patient TargetsNo targets recorded. Patient Instructions Encounter Date Encounter Id Patient Instructions Last Modified By Organization Details Last Modified Time 10/06/2017 [id number] neck pain: care instructions [email or web address] Not available 10/06/2017 11:19:43 Reason for Referral Referring Physician: Tomas cornell, Orthopedic Surgery, Encounter Date: 12/30/2016 Referring Physician: Ronnell Dillard, Orthopedic Surgery, Encounter Date: 10/06/2017 Results Created Date Observation Date Name Description Value Unit Range Abnormal Flag Note LastModifiedBy Organization Detail LastModifiedTime 10/07/19 18 C spine No observ ation record ed. [address], [place], [address] 10/07/2017 07:43:13 12/11/19 18 12/10/2017 MRI, cervi marcel spine , w/o contr ast [facility] Access ion Number : [id number] Patien t Name : Laura Neely Record Number : [id number] Date of : 1949 Date of Exam : 2017 Referr ing Physic dimas : Ronnell DILLARD S [address] [place] [address] Exam : MR - CERVIC AL SPINE (C-) CPT 62979 - Room Descri ption : [facility] Espr 2 1.5 Techni que : Sag T1, Sag T2, Sag STIR, Ax T2*GRE , Ax T2 Final Report INDICA TION: Neck pain. COMPAR DARI: None. FINDIN GS: The verteb ral bodies are normal in height . There is straig htenin g of the cervic al spine with no signif icant sublux ation. There are degene rative endpla te marrow signal change s and endpla te osteop hytes which are most promin ent at the C5-C6 level, where there is also mild loss of interv ertebr al disc height . The visual ized tape recorder repairer ior fossa struct ures are normal . The spinal cord is normal in calibe r and signal . The parasp inal and prever tebral soft tissue s are normal . The major vascul ar flow voids are presen t. A 6 mm T2 hyperi ntense right thyroi d nodule does not requir e furthe r imagin g follow -up. C2-C3: No spinal canal or neural forami nal stenos is. C3-C4: No spinal canal or neural forami nal stenos is. C4-C5: Mild facet arthro sis with minima l centra l disc osteop hyte comple x. No spinal canal or neural forami nal stenos is. C5-C6: Front Desk Worker ior disc osteop hyte comple x with a small right parace ntral extrus ion compon ent migrat ed above the disc space. There is mild right- sided spinal canal narrow ing with no spinal cord compre ssion. Uncove rtebra l joint spurri ng with right greate r than left facet arthro sis causes mild right and no left neural forami nal narrow ing. C6-C7: Minima l centra l disc protru whitney. No spinal canal or neural forami nal stenos is. C7-T1: Facet arthro sis and minima l disc bulge. No spinal canal stenos is. There is mild left and no right neural forami nal narrow ing. IMPRES WHITNEY: Mild multil evel degene rative change s as descri bed above with no eviden ce of spinal cord compre ssion or nerve root imping ement. ----- PHYSIC DIMAS : PATRICIA PRASAD MD (Signa graeme on file) 2017 [email or web address] [facility] ([facility]) [address], [place], [address], 12/14/2017 13:41:22 04/10/20 21 MRI, lumba r spine , w/o contr ast No observ ation record ed. [email or web address] Not Available 2020 10:43:02 04/21/20 21 radio fluor oscop y No observ ation record ed. [address], [address] 04/21/2021 12:58:50 Result Notes Documentation Provider Name and Address Organization Details Recorded Time Mri, Cervical Spine, W/o Contrast : [facility] Accession Number : [id number] Patient Name : Laura Schultz Date of : 1950 Date of Exam : 12/10/2017 Referring Physician : Ronnell DILLARD [address] [place] [address] Exam : MR - CERVICAL SPINE (C-) CPT 90019 - Room Description : [facility] Espr 2 1.5 Technique : Sag T1, Sag T2, Sag STIR, Ax T2*GRE, Ax T2 Final Report INDICATION: Neck pain. COMPARISON: None. FINDINGS: The vertebral bodies are normal in height. There is straightening of the cervical spine with no significant subluxation. There are degenerative endplate marrow signal changes and endplate osteophytes which are most prominent at the C5-C6 level, where there is also mild loss of intervertebral disc height. The visualized posterior fossa structures are normal. The spinal cord is normal in caliber and signal. The paraspinal and prevertebral soft tissues are normal. The major vascular flow voids are present. A 6 mm T2 hyperintense right thyroid nodule does not require further imaging follow-up. C2-C3: No spinal canal or neural foraminal stenosis. C3-C4: No spinal canal or neural foraminal stenosis. C4-C5: Mild facet arthrosis with minimal central disc osteophyte complex. No spinal canal or neural foraminal stenosis. C5-C6: Posterior disc osteophyte complex with a small right paracentral extrusion component migrated above the disc space. There is mild right-sided spinal canal narrowing with no spinal cord compression. Uncovertebral joint spurring with right greater than left facet arthrosis causes mild right and no left neural foraminal narrowing. C6-C7: Minimal central disc protrusion. No spinal canal or neural foraminal stenosis. C7-T1: Facet arthrosis and minimal disc bulge. No spinal canal stenosis. There is mild left and no right neural foraminal narrowing. IMPRESSION: Mild multilevel degenerative changes as described above with no evidence of spinal cord compression or nerve root impingement. ----- PHYSICIAN : PATRICIA PEREZ MD (Signature on file) 12/10/2017 Ludy cardoso [facility] 12/14/2017 13:41:22 Problems Name Problem SNOMED Code Status Onset Date Resolution Date Notes Provider Name and Address Organization Details Recorded Time Arthropathy of cervical spine facet joint 608543990 Active 2017 Ronnell DILLARD MD [address] [place] [address], [phone] , [facility] 8 11:19:33 Neck pain 05293152 Active 2017 Ronnell DILLARD MD [address] [place] [address], [phone] , [facility] 8 11:19:38 Problem Notes None recorded. Procedures Surgical History Date Name Laterality Status Provider Name and Address Organization Details Recorded Time 1 [facility] Lumbar Epidural Injection completed LUDY GUAMAN MD [address] [place] [address], [phone], [facility] 04/21/2021 12:08:12 1 PPE completed LUDY GUAMAN MD [address] [place] [address], [phone], [facility] 04/21/2021 12:08:02 1 PPE completed Kathleen Schuster [facility] 04/10/2021 11:20:[address] [facility] Facet Joint Injection Cervical completed LUDY GUAMAN MD [address], [place], [address], [facility] 10/06/2017 12:32:[address] [facility] Lumbar Epidural Injection completed LUDY GUAMAN MD [address] [facility],[address], [place], [address], [facility] 10/22/2016 11:18:[address] [facility] Lumbar Epidural Injection completed LUDY GUAMAN MD [address] [facility],[address], [place], [address], [facility] 09/24/2016 12:43:58 Imaging Results None recorded. Procedure Notes None recorded. Medical Equipment None Reported. Allergies No known drug allergies Medications Name Sig Start Date Stop Date Status Note LastModified by Organization Details LastModified Time quetiapine 25 mg tablet 10/06 completed Not Available Not Available Not Available cyclobenzap rine 10 mg tablet active Not Available Not Available Not Available atorvastati n 40 mg tablet TAKE 1 TABLET BY MOUTH DAILY active Not Available Not Available No t Available atorvastati n 80 mg tablet TAKE 1 TABLET BY MOUTH DAILY active Not Available Not Available No t Available prednisone 10 mg tablet 09/24 completed Not Available Not Available Not Available doxycycline hyclate 100 mg capsule active Not Available Not Available N ot Available lamotrigine 200 mg tablet TAKE 2 TABLETS BY MOUTH EVERY DAY active Not Available Not Available No t Available ammonium lactate 12 % lotion 09/24 completed Not Available Not Available Not Available citalopram 40 mg tablet TAKE 1 TABLET BY MOUTH EVERY MORNING active Not Available Not Available No t Available trazodone 50 mg tablet TAKE 1 TABLET BY MOUTH EVERY NIGHT AT BEDTIME NEEDED FOR SLEEP active Not Available Not Available No t Available atorvastati n 10 mg tablet active Not Available Not Available Not Available Stool Softener 100 mg capsule active Not Available Not Available Not Available valacyclovi r 1 gram tablet 09/24 completed Not Available Not Available Not Available hydrocodone 5 mg-acetamin ophen 325 mg tablet active Not Available Not Available No t Available prednisone 20 mg tablet active Not Available Not Available Not Available lidocaine 4 % topical cream APPLY TOPICALLY TID PRN FOR 7 DAYS active Not Available Not Available No t Available clindamycin HCl 150 mg capsule active Not Available Not Available Not Available clopidogrel 75 mg tablet TAKE 1 TABLET BY MOUTH DAILY active Not Available Not Available No t Available tramadol 50 mg tablet Take 1 tablet every 6 hours by oral route as needed. 10/06 completed Not Available Not Available Not Available quetiapine 100 mg tablet TAKE 1 AND 1/2 TABLETS BY MOUTH EVERY DAY AT BEDTIME active Not Available Not Available No t Available prazosin 5 mg capsule active Not Available Not Available N ot Available citalopram 20 mg tablet TAKE 1 TABLET BY MOUTH EVERY DAY active Not Available Not Available No t Available lorazepam 0.5 mg tablet active Not Available Not Available Not Available hydrocortis one 1 % topical cream 09/24 completed Not Available Not Available Not Available pantoprazol e 40 mg tablet,russell yed release active Not Available Not Available Not Available ibuprofen 400 mg tablet 10/06 completed Not Available Not Available Not Available gabapentin 300 mg capsule 09/24 completed Not Available Not Available Not Available aspirin 81 mg chewable tablet CHEW AND SWALLOW 1 TABLET BY MOUTH DAILY active Not Available Not Available No t Available morphine ER 15 mg tablet,exte nded release 09/24 completed Not Available Not Available Not Available mupirocin 2 % topical ointment 10/06 completed Not Available Not Available Not Available gabapentin 100 mg capsule 09/24 completed Not Available Not Available Not Available metoprolol succinate ER 25 mg tablet,exte nded release 24 hr TAKE 1/2 TABLET BY MOUTH DAILY active Not Available Not Available No t Available ibuprofen 600 mg tablet 10/06 completed Not Available Not Available Not Available polyethylen e glycol 3350 17 gram/dose oral powder 10/06 completed Not Available Not Available Not Available ferrous sulfate 325 mg (65 mg iron) tablet,russell yed release active Not Available Not Available Not Available fluticasone propionate 50 mcg/actuati on nasal spray,suspe nsion SHAKE LQ AND U 2 SPRAYS IEN D active Not Available Not Available No t Available heparin (porcine) 5,000 unit/mL injection solution 09/24 completed Not Available Not Available Not Available lamotrigine 100 mg tablet 10/06 completed Not Available Not Available Not Available loratadine 10 mg tablet TK 1 T PO D active Not Available Not Available No t Available prazosin 2 mg capsule active Not Available Not Available N ot Available amoxicillin 875 mg-jenniferu m clavulanate 125 mg tablet 10/06 completed Not Available Not Available Not Available tobramycin 0.3 %-dexametha sone 0.1 % eye drops,suspe nsion 10/06 completed Not Available Not Available Not Available oxycodone 5 mg tablet 10/06 completed Not Available Not Available Not Available ezetimibe 10 mg tablet active Not Available Not Available Not Available cyclobenzap rine 5 mg tablet TAKE 1 TABLET BY MOUTH AT BEDTIME FOR UP TO 10 DAYS NEEDED FOR MUSCLE SPASMS active Not Available Not Available No t Available oxycodone 10 mg tablet Take 1 tablet every 12 hours by oral route as needed. active Not Available Not Available No t Available lidocaine 5 % topical ointment active Not Available Not Available Not Available Embeda 100 mg-4 mg capsule, extend release, oral only 09/24 completed Not Available Not Available Not Available OxyContin 10 mg tablet,jennifer h resistant,e xtended release Take 1 tablet every 12 hours by oral route. 10/06 completed Not Available Not Available Not Available Fluzone High-Dose Quad 2020- (PF) 240 mcg/0.7 mL IM syringe ADM 0.7ML IM UTD active Not Available Not Available No t Available Vitals Date Recorded Body height Body mass index (BMI) Body weight Body temperature Provider Name and Address Organization Details Last Updated DateTime 10/06/2017 157.48 cm 29.3 kg/m2 68745.78 g 97.6 [degF] Ludy Walden MD - [facility] 10/06/2017 10:37:51 Date Recorded Pain severity - 0-10 verbal numeric rating [Score] - Reported Provider Name and Address Organization Details Last Updated DateTime 10/06/2017 9 Not Available [facility] 8 05:59:04 Date Recorded Body height Body mass index (BMI) Body weight Body temperature Provider Name and Address Organization Details Last Updated DateTime 12/30/2016 157.48 cm 29.3 kg/m2 91783.78 g 97.9 [degF] Loretta Cronin MA [facility] 12/30/2016 13:03:29 Date Recorded Body height Body mass index (BMI) Body weight Body temperature Provider Name and Address Organization Details Last Updated DateTime 04/10/2021 157.48 cm 29.3 kg/m2 33473.78 g 97 [degF] Kathleen Schuster [facility] 04/10/2021 11:16:11 Social History Question Answer Notes LastModified by Organizat ion Details LastModified Time Tobacco Smoking Status Never Smoker Sammie Michele cardoso [facility] 09/24/2016 11:48:50 Do You Have An Advance Directive? Yes [email or web address] Information not available 10/06/2017 What Was The Date Of Your Most Recent Tobacco Screening? 10/06/2017 Information n ot available 02/08/2019 Sex: Unknown Functional Status None recorded. Mental Status None recorded. Family History Nothing Reported. Medical History No medical history recorded. Gynecological HistoryNo gynecological history recorded. Obstetrics History GPAL:G 0 P 0 0 0 0 Past Encounters Encounter ID Performer Location Encounter Start Date Encounter Closed Date Diagnosis/Indication Diagnosis SNOMED-CT Code Diagnosis ICD10 Code Diagnosis IMO Codes Diagnosis Note [id number] L MEKHI DILLARD MD [address] [address] 09/24/2016 11:38:17 09/24/2016 12:27:48 Lumbar radiculopathy 717624273 M54.16 [id number] LUDY GUAMAN MD [address] [address] 09/24/2016 12:22:07 09/24/2016 12:46:46 Lumbosacral radiculitis 91351854 M54.17 [id number] L MEKHI DILLARD MD [address] [address] 10/07/2016 11:44:15 10/07/2016 13:54:22 Lumbar radiculopathy 827057050 M54.16 patient moderately improved after her 2 epidural injections for her right lumbar radiculopa thy. Still a moderate amount of pain significan tly affecting her day-to-day function. After careful questionin g today she feels that she is in enough severe pain to warrant surgical consultati on which has been arranged for this afternoon. We did discuss that we can go ahead and do a third injection, however I think at the end of the day she is going to need to have surgery and as such we will arrange for that surgical consultati on. We discussed choice of surgeons. I did express utmost confidence in Dr. Lawler. After her visit if she is not satisfied or give her a few more names of surgeons for second opinions. Percent of today's 15 minute visit was used for patient counseling . [id number] MD Konstantin GAITAN [address] [place] [address] 10/07/2016 12:46:46 10/07/2016 14:49:02 Spinal stenosis of lumbar region 31032031 M48.06 [id number] LUDY GUAMAN MD [address] [address] 10/22/2016 10:48:55 10/22/2016 11:21:42 Lumbosacral radiculitis 43076080 M54.17 [id number] TOMAS LAWLER MD [address] [address] 11/25/2016 13:55:39 11/25/2016 17:10:42 Postoperative care 274035788 Z48.89 [id number] TOMAS LAWLER MD [address] [address] 12/30/2016 12:42:36 12/30/2016 13:36:24 History of lumbar laminectomy 3380712729 8321859 Z98.890 [id number] L MD Cory MCC[address] [address] 10/06/2017 10:11:09 10/06/2017 11:42:18 Neck pain 47638660 M54.2 Arthropath y of cervical spine facet joint 188065802 M46.92 [id number] LUDY GUAMAN MD [address] [address] 10/06/2017 11:27:55 10/06/2017 12:48:31 Cervical spondylosis 732412969 M47.812 [id number] TOMAS LAWLER MD [address] [address] 04/10/2021 10:38:00 04/14/2021 09:21:44 Lumbar radiculopathy 662320935 M54.16 [id number] MD MISTY MORENO - [place] [address] [facility] [place] [address] 04/21/2021 11:53:13 04/23/2021 14:44:05 Lumbar radiculopathy 923173904 M54.16 Health Concerns Section Related Observation LastModified by Organization Detai ls LastModified Time None Recorded Concern Status LastModified by Organization Details LastModified Time None Recorded Advance Directives Directive Y: Payers Insurance Date Sequence Insurance Name Policy Number Policy Dawkins Covered Member ID Dawkins Member ID Guarantor Name 08/26/2020 2 MEDICAID-MD[facility] Laura Abramsfilia [id number] Laura Abramsfilia 08/26/2020 1 MEDICARE B-MD: [employer] Laura Hdez Bonafilia [id number] Laura Leachia 03/13/2018 [employer] - SPECIALITY CLAIMS (MEDICARE [facility] Laura Hdez Bonafilia [id number] Laura Schultz Notes Date Note Type Note Provider Name and Address Organization Details Recorded Time 12/30/2016 text/html She reports greatly reduced leg pain. She still has some back pain. She continues to take OxyContin. There is no numbness or weakness. TOMAS LAWLER MD [address] [place] [address],[address], [place], [address], [facility] 12/30/2016 14:07:26 10/06/2017 text/html This is a 67-year-old who comes in today stating about 2 weeks ago she developed severe pain in the neck without any known injury or trauma. No real radiating pain she had an emergency room visit where she had x-rays taken demonstrating severe neck osteoarthritis. She was placed on prednisone 40 mg 5 days cyclobenzaprine 2-3 per day oxycodone for which she took for pills and naproxen. She states that at this time she feels markedly better and her pain went from a 10 out of 10 to a 2-3 out of 10. Symptoms are worse with increased activity and neck motion. Ronnell DILLARD MD [address] [place] [address],[address], [place], [address], [facility] 10/06/2017 16:52:42 04/10/2021 text/html She presents today for evaluation of left buttock pain. This been going on for months. It radiates down the back of the left leg. She tried physical therapy for this but this did not help her. She has some numbness and weakness in the leg. She has a history of an L4 laminectomy. She did very well after this. She has no pain on the right. Medications have not helped her. TOMAS LAWLER MD [address] [facility], [place], [address], [facility] 04/10/2021 11:35:40 OBGyn Episode No OBEpisode recorded.
--- OUTSIDE RECORDS SUMMARY | 2025-05-29 17:01 | XMS_ITS | Patient Health Record ---
Author Organization [facility] Address [address] [place] [address] Care Team Providers Care Bus Operator Name Role Phone Leigh RIDDLE, [facility] Primary Care Provider Unavailab Humera Bragg Unavailable [phone] Allergies Allergen (clinical drug ingredient) Drug/Non Drug Allergy documented on EMR Reaction Allergy Type Onset Date Status bacitracin Antibiotic Unknown Drug Allergy Activ e sulfa Unknown Drug Allergy Active codeine Codeine Unknown Drug Allergy Active morphine Morphine Unknown Drug Allergy Active Reason For Referral No Information Medications Medication SIG (Take, Route, Frequency, Duration) Notes Start Date End Date Status SEROquel 25 MG 1 tablet Orally Twic e a day; Duration: 30 day(s) Active Citalopram & Diet Manage Prod 10 MG as directed Orally Active Custom Orthotics as directed 05/10/2012 Active Savella 25 MG 2 tablets Orally Twi ce a day; Duration: 30 day(s) Active LORazepam 1 MG 1 tablet Orally Twic e a day Active Evista 60 MG 1 tablet Orally Once a day; Duration: 30 day(s) Active Furosemide 20 MG 1 tablet Orally Once a day; Duration: 30 day(s) Active Atorvastatin Calcium 10 MG 1 tablet Oral ly Once a day; Duration: 30 day(s) Active Problems Problem Type SNOMED Code ICD Code Onset Dates Problem Status W/U Status Risk Notes Problem Arthralgia (15831502) Arthralgia (719.40) Active confirmed Problem Disorder of joint of ankle and/or foot (593287911) Arthritis - Degenerative (719.97) Active confirmed Problem Bursitis (23048586) Bursitis (727.3) Active confirmed Problem Pain in limb (52738401) Pain in Limb (729.5) Active confirmed Problem Tailors bunion (8797946) Tailors Bunion (727.1) Active confirmed Plan Of Treatment Pending Test Test Name Order Date X ray : Foot, left 3V 03/17/2012 X ray : Foot, right 3V 03/17/2012 [id number] Plate 05/10/2012 [id number] Plate 02/28/2013, [id number]-[id number]/INJECT, JOINT/BURSA 0 02/28/201372199, [id number]/INJECT, JOINT/BURSA 0 04/12/2012 [id number] 3mg 04/12/2012 Insurance Providers Payer Name Payer Address Payer Phone Subscriber Number Group Number Insured Name Patient Relationship to Insured Coverage Start Date Coverage End Date Medicare [employer] [address] [place] [address] [id number] Laura Francois Self - patient is the insured Medical (General) History Medical History History ICD Code anxiety back, hip, knee pain broken bones Cholesterol colitis fibromyalgia gall bladder problems headaches/migraines high blood pressure psychiatric disorder warts measles mumps chicken pox Surgical History Surgery Date(Month/Year) gall bladder arm carpal tunnel surgery hand/wrist
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
== END 2025-05-29 16:16 | disposition home or self-care (01) ==
LOC: HO.HPHYS 15:22
PROVIDERS: PCP Internal Medicine; Visit Provider Physician Assistant
DX: M25.811 Other specified joint disorders, right shoulder (principal); M54.51 Vertebrogenic low back pain
CPT/HCPCS: 20610; 99213

== ENCOUNTER → 2025-05-29 15:22 | Outpatient (BNVA) | payer MEDICARE, MEDICAID, SELFPAY | PROVIDERS: PCP Internal Medicine; Visit Provider Physician Assistant | DX: M25.811 Other specified joint disorders, right shoulder (principal) | CPT/HCPCS: 20610; 99212; J2003; J3301 ==

== ENCOUNTER 2025-06-22 12:10 | Outpatient (REF) | payer MEDICARE, MEDICAID, SELFPAY | END 2025-06-22 12:11 | disposition home or self-care (01) | LOC: HO.HPHYSR 12:10 | PROVIDERS: PCP Internal Medicine; Visit Provider Physical Medicine & Rehabilitation | DX: M47.816 Spondylosis without myelopathy or radiculopathy, lumbar region (principal) | CPT/HCPCS: 64493; 64494; J2003; J3301; Q9967 ==

== ENCOUNTER 2025-06-22 12:10 | Outpatient (AMB) | payer MEDICARE, MEDICAID, SELFPAY ==
[2025-06-22 12:38] VITALS: BP 107/54; PULSE 63; BMI 21.9
--- NOTE | 2025-06-22 12:38 | A.PHYSOV_ITS ---
Vital Signs 06/22/25 12:38 Height 5 ft 2 in Weight 120 lb BMI 21.9 BP 107/54 L Pulse 63 Intake Visit Reasons: Bilateral Lumbar Facet L4-5 L5-S1 Intake Note: Patient is a 75 year old female in office today for bilateral L4-5 and L5-s1 facet injections. Pull Over Required: No Allergies codeine (CODEINE) Allergy (Unknown, Verified 06/22/25 12:37) NAUSEA & VOMITING tramadol (TRAMADOL) Allergy (Unknown, Verified 06/22/25 12:37) SLEPT FOR 36 HOURS NARCOTICS Allergy (Unknown, Uncoded 04/04/20 16:01) MAKES PT DROWSY [facility] Medical History (Updated 06/22/25 @ 12:40 by Tomy Laguna DO) Spondylosis of lumbar region without myelopathy or radiculopathy Surgical History H/O shoulder surgery (Unknown) H/O: knee surgery (Unknown) Stented coronary artery (Unknown) History of cholecystectomy (Unknown) Status post cardiac surgery (Unknown) Social History (Updated 06/22/25 @ 12:41 by Kelly Snowden MA) Alcohol intake: current Alcohol intake frequency: holidays/special occasions only Patient Tobacco Use Status: Never used Tobacco Current occupational status: retired Physical Exam Vital Signs: Last Vital Signs Pulse 63 06/22/25 12:38 BP 107/54 L 06/22/25 12:38 BMI result Body Mass Index 21.9 Office Procedures Procedure Details: Procedure performed: Bilateral L4-L5, L5-S1 facet joint injections Preop diagnosis: Lumbar facet arthropathy Postop diagnosis: The same Anesthesia: Local After informed consent was obtained, patient was brought into the procedure room and placed in the prone position on the procedure table. Skin over the lumbar sacral area was prepped and draped in the usual sterile manner. The facet joints indicated above were visualized utilizing fluoroscopy. For each joint 3.5 inch 22 gauge spinal needle was introduced percutaneously and advanced to enter the joint space. Needle placement was verified utilizing 0.2 cc of Omnipaque contrast solution. Each joint received total 1.5 cc of therapeutic solution containing 20 mg of of triamcinolone and 2% lidocaine. Radiation exposure was recorded and documented in chart. [id number] Lumbar Facet Inj SINGLE Level- use with FL Gd order: [id number] - Bilateral 10689 Lumbar Facet Inj SECOND Level- use with FL Gd order: [id number] - Bilateral Procedure code (CPT) selection complete Office Meds Kenalog 40 mg/mL suspension for injection Performing Provider: Tomy Laguna DO Performing Location: [facility] Administered by: Tomy Laguna DO on 06/22/25 12:40 Dose Route Admin Location Dispensed Lot Number Expiration Date [facility] [employer] 20 mg intra-articular 1 mL [id number] [employer] Total Dispensed Waste 1 mL 50 % lidocaine (PF) 20 mg/mL (2 %) injection solution Performing Provider: Tomy Laguna DO Performing [facility] Administered by: Tomy Laguna DO on 06/22/25 12:40 Dose Route Admin Location Dispensed Lot Number Expiration Date [facility] [employer] 80 mg intra-articular 5 mL [id number] [employer] Total Dispensed Waste 5 mL 20 % Omnipaque 300 300 mg iodine/mL intravenous solution Performing Provider: Tomy Laguna DO Performing Location: [facility] Administered by: Tomy Laguna DO on 06/22/25 12:40 Dose Route Admin Location Dispensed Lot Number Expiration Date [facility] [employer] 3 mL intra-articular 10 mL [id number] [employer] Total Dispensed Waste 10 mL 70 % Assessment & Plan Assessment & Plan (1) Spondylosis of lumbar region without myelopathy or radiculopathy: Code(s): M47.816 - Spondylosis without myelopathy or radiculopathy, lumbar region Category: Medical Plan: Procedure Plan Procedure Orders: Orders FL Gd Lumbar Spine Facet Inj Today M47.816 - Spondylosis without myelopathy or radiculopathy, lumbar region AMB Lumbar Facet Injection Today M47.816 - Spondylosis without myelopathy or radiculopathy, lumbar region Coding Level of Care Code Procedure Only Diagnoses Spondylosis of lumbar region without myelopathy or radiculopathy M47.816 CPT Codes Lumbar Facet Injection - 57217 Thoracic Facet Inj CPT: 28002 - Bilateral ([id number]) Lumbar Facet Injection - 63819 Thoracic Facet Inj CPT: 55938 - Bilateral ([id number])
== END 2025-06-22 13:49 | disposition home or self-care (01) ==
LOC: HO.HPHYS 12:11
PROVIDERS: PCP Internal Medicine; Visit Provider Physical Medicine & Rehabilitation
DX: M47.816 Spondylosis without myelopathy or radiculopathy, lumbar region (principal)
CPT/HCPCS: 64493; 64494